=== PATIENT | female | born 1990 | race Caucasian/White ===

== ENCOUNTER 2022-10-27 14:12 | Emergency (ER) | payer MEDICAID ==
[2022-10-27 15:36] LABS: CORONAVIRUS COVID-19 NAA NEGATIVE (NEGATIVE); RESPIRATORY SYNCYTIAL VIR NAA NEGATIVE (NEGATIVE)
== END 2022-10-27 16:40 | disposition home or self-care (01) ==
LOC: KA.ED 14:12
DX: J10.1 Influenza due to other identified influenza virus with other respiratory manifestations (principal); Z72.0 Tobacco use; Z20.822 Contact with and (suspected) exposure to COVID-19
CPT/HCPCS: 0241U; 99283; 99284

== ENCOUNTER 2023-03-14 19:47 | Emergency (ER) | payer MEDICAID ==
[2023-03-14 20:27] LABS: BENZODIAZEPINES SCREEN,URINE POSITIVE (NEGATIVE); THC SCREEN,URINE 50 NG/ML POSITIVE (NEGATIVE)
[2023-03-14 20:28] LABS: BARBITURATE SCREEN,URINE NEGATIVE (NEGATIVE); TCA SCREEN,URINE NEGATIVE (NEGATIVE)
[2023-03-14 20:33] LABS: ANION GAP 12.4 mmol/L (5-15); CHLORIDE,CL 101 mmol/L (98-107); SODIUM,NA 137 mmol/L (136-145)
[2023-03-14 20:34] LABS: ACETAMINOPHEN < 0.0 ug/mL (10.0-30.0); ESTIMATED GFR 102 mL/min (>=60)
== END 2023-03-14 22:55 | disposition home or self-care (01) ==
LOC: KA.ED 19:47 → SUPCPDRO 19:47 → KA.ED 22:55
DX: F32.A Depression, unspecified (principal); F41.9 Anxiety disorder, unspecified; S60.812A Abrasion of left wrist, initial encounter; R45.851 Suicidal ideations
CPT/HCPCS: 36415; 80053; 80143; 80305-QW; 80307; 81001; 81025; 85025; 87086; 87088; 93005; 93010; 99284

== ENCOUNTER 2023-03-21 12:50 | Emergency (ER) | payer MEDICAID ==
[2023-03-21] MEDS ORDERED: Lidocaine 1% with EPINEPHrine 1:100,000 10 ML MDV INJECT ONE (14:05)
== END 2023-03-21 14:26 | disposition home or self-care (01) ==
LOC: KA.ED 12:50
DX: J02.9 Acute pharyngitis, unspecified (principal); R05.9 Cough, unspecified
CPT/HCPCS: 71046; 87651-QW; 99283

== ENCOUNTER 2023-03-30 23:40 | Emergency (ER) | payer MEDICAID | END 2023-03-30 23:58 | disposition left against medical advice (07) | LOC: KA.ED 23:40 | DX: Z13.9 Encounter for screening, unspecified (principal) | CPT/HCPCS: 99283 ==